=== PATIENT | female | born 1990 | race Caucasian/White ===

== ENCOUNTER 2022-06-06 17:22 | Emergency (ER) | payer SELFPAY ==
[2022-06-06 18:50] LABS: Pregnancy Test - Urine (BHCG) Negative (Negative); Pregu Control Background? CLEAR/WHITE (CLR/WHITE); Pregu Control Bar Appear? YES (CONTROL BAR)
[2022-06-06] MEDS ORDERED: Ketorolac Tromethamine 30 MG/ML VIAL ONE (18:55)
[2022-06-06] MEDS ORDERED: Lactated Ringer's 1,000 ML ONE (18:55)
[2022-06-06 19:03] LABS: #Basophils 0.1 thou/uL (0.0-0.2); #Lymphocytes 1.4 thou/uL (1.20-3.40); #Monocytes 0.3 thou/uL (0.11-0.59); #Neutrophils 4.3 thou/uL (1.40-6.50); %Basophils 0.9 % (0.0-1.0); %Eosinophils 0.5 % (0.0-10.0); %Lymphocytes 23.5 % (21.0-51.0); %Monocytes 4.5 % (0.0-10.0); %Neutrophils 70.7 % (42.0-75.0); Hemoglobin 13.6 g/dL (12.0-16.0); Mean Corpuscular HGB CONC 33.7 g/dL (32.0-36.0); Mean Corpuscular Hemoglobin 29.5 pg (27.0-31.0); Mean Corpuscular Volume 87.6 fl (78.0-98.0); Mean Platelet Volume 8.1 fL (7.4-10.4); Platelet Count 222 10x3/uL (130-400); RBC Distribution Width 10.7 % (11.5-14.5); Red Blood Cell (RBC) Count 4.59 mill/uL (4.20-5.40); White Blood Cell (WBC) Count 6.1 10x3/uL (4.8-10.8)
[2022-06-06] MEDS ORDERED: Dexamethasone 10 MG/ML VIAL ONE (19:10)
[2022-06-06 19:20] LABS: ALT (SGPT) 17 U/L (8-55); AST (SGOT) 16 U/L (5-34); Albumin 4.8 g/dL (3.5-5.0); Alkaline Phosphatase 40 U/L (40-110); Anion Gap 15 mmol/L (10-20); BUN (Urea Nitrogen) 13 mg/dL (7.0-18.7); Bilirubin, Total 0.6 mg/dL (0.2-1.2); Calc. Creatinine Clearance 0 mL/min (70-130); Calcium 9.8 mg/dL (7.8-10.44); Carbon Dioxide 23 mmol/L (22-29); Chloride 106 mmol/L (98-107); Estimated GFR 102; Globulin 2.4 g/dL (2.4-3.5); Glucose 91 mg/dL (70-105); Potassium 3.8 mmol/L (3.5-5.1); Protein, Total 7.2 g/dL (6.0-8.3); Sodium 140 mmol/L (136-145)
[2022-06-06] MEDS ORDERED: diphenhydrAMINE 12.5 MG/5 ML UDCUP ONE (19:44)
[2022-06-06] MEDS ORDERED: Prochlorperazine 10 MG/2 ML VIAL ONE (19:44)
[2022-06-06] MEDS ORDERED: diphenhydrAMINE 50 MG/ML VIAL ONE (19:45)
[2022-06-06] MEDS ORDERED: Dicyclomine 20 MG/2 ML VIAL ONE (19:45)
== END 2022-06-06 20:22 | disposition home or self-care (01) ==
LOC: MADERS 17:22
DX: R51.9 Headache, unspecified (principal)
CPT/HCPCS: 36415; 80053; 81025; 85025; 96374; 96375; J0780; J1100; J1200; J1885; J7120; Q0163